=== PATIENT | male | born 1970 | race Caucasian/White ===

== ENCOUNTER 2016-11-13 04:08 | Emergency (ER) | payer MEDICAID ==
[~2016-11-13] VITALS: Ht 185.4 cm; Wt 109.0 kg
[~2016-11-13 04:08] MED LIST: ATEN-100 PO; HYDR-2768 PO; SERT50 PO
[2016-11-13] MEDS ORDERED: GELATIN 12 MM/7 MM FOAM TOPICAL ONE (04:15)
[2016-11-13] MEDS ORDERED: LIDOCAINE 1%/EPINEPHrine 1:100,000 SOLN 20 ML VIAL INFIL ONE (04:15)
[2016-11-13] MEDS ORDERED: HYDR-3583 PO (04:21)
[2016-11-13] MEDS ORDERED: HYDR25TA5 PO (04:21)
[2016-11-13] MEDS ORDERED: ATEN50TA PO (04:21)
[2016-11-13] MEDS ORDERED: FOLI1TAB6 PO (04:21)
[2016-11-13] MEDS ORDERED: ASPI325T PO (04:21)
[2016-11-13] MEDS ORDERED: ZOLO50TA PO (04:21)
[2016-11-13 04:22] VITALS: BP 184/95; PULSE 96; RESP 18; TEMP 98.5; O2SAT 97
[2016-11-13] MEDS ORDERED: LIDOCAINE 2%/EPINEPHrine 1:100,000 30ML MDV INFIL ONE (04:30)
[2016-11-13] MEDS ORDERED: LIDOCAINE 2%/EPINEPHrine 1:100,000 50ML MDV INFIL ONE (04:30)
[2016-11-13 05:01] VITALS: BP 147/91; PULSE 89; RESP 16; O2SAT 96
--- NOTE | 2016-11-13 05:02 | PD ---
HPI Chief Complaint: Bleeding Time Seen by Provider: 04:13 Travel History International Travel<30 days: No Contact w/Intl Traveler<30days: No Traveled to known affect area: No History of Present Illness HPI Is a 46-year-old man who is pretty history of bad venous disease in his lower extremities with previous venous stripping of previous bleeding from varicose veins. It sounds like he may have some kind of inflammatory phlebitis. He follows with a vascular surgeon. He states tonight when he stood up he had bleeding from an area on his leg that he knew was about to rupture and started having bleeding. He describes spurting bleeding. He applied a bandage to the leg and tried to turn to get the leg with a belt. History Past Medical History Narrative Medical Venous disease Social History Alcohol Use: Yes ("MAYBE ONE OR TWO BEERS A MONTH") Tobacco Use: Yes ("2 PACKS PER WEEK") Allergies-Medications (Allergen,Severity, Reaction): Coded Allergies: No Known Allergies (Unverified , 11/13/16) Reported Meds & Prescriptions Reported Meds & Active Scripts Active Reported Folic Acid 1 Mg Tablet 1 Mg PO DAILY Aspirin 325 Mg Tab 325 Mg PO DAILY Hydrocodone-Acetaminophen 10-325 mg Tab 1 Tab PO Q8HR PRN Zoloft (Sertraline HCl) 50 Mg Tab 50 Mg PO DAILY Hydrochlorothiazide 25 Mg Tab 25 Mg PO DAILY Atenolol 50 Mg Tab 50 Mg PO BID Review of Systems Except as stated in HPI: all other systems reviewed are Neg Physical Exam Narrative GENERAL: Well-appearing 46-year-old man, no acute distress. SKIN: Warm and dry. CARDIOVASCULAR: Warm and well perfused. RESPIRATORY: Normal rate and effort. MUSCULOSKELETAL: Patient has a punctate area of bleeding on the anterior leg. He is active almost brisk small amount of bleeding. Several areas of varicose veins. NEUROLOGICAL: Awake and alert. No gross deficits. Data Data Last Documented VS Vital Signs Date Time Temp Pulse Resp B/P Pulse Ox O2 Delivery O2 Flow Rate FiO2 11/13/16 05:01 89 16 147/91 96 Room Air 11/13/16 04:22 98.5 Orders Gelatin 12 Mm/7 Mm Top (Gelfoam 12 Mm/7 (11/13/16 04:15) Lidocai-Epi 2%-1:100,000 Inj (Xylocaine- (11/13/16 04:30) Lidocai-Epi 2%-1:100,000 Inj (Xylocaine- (11/13/16 04:30) MDM Medical Decision Making Medical Screen Exam Complete: Yes Emergency Medical Condition: Yes Differential Diagnosis Phlebitis, varicose veins, bleeding, other Narrative Course Medical decision making Is a 46 year-old woman is bleeding from a area of phlebitic varicose veins. Bleeding is subsided some as he applied pressure and elevated the leg. I injected some lidocaine with epinephrine, we applied a stitch to the area to try to close the wound, and he applied some Gelfoam and pressure. Bleeding is subsided. We'll give him an hour, the lobe stand up. He has a pressure dressing on. We'll have him follow-up with his vascular surgeon in the next day or 2. Diagnosis Primary Impression: Phlebitis Additional Impression: Bleeding Additional Instructions: Keep leg elevated as much as possible for the next 24-48 hours. After 24 hours remove bandage in place with regular Jamil wrap which gentle compression. Follow-up with your vascular surgeon in the next day or 2. Med/Other Pt SpecificInfo: No Change to Meds Disposition: 01 DISCHARGE HOME Condition: Stable Jameel Felipe MD Nov 13, 2016 05:02
[2016-11-13 06:06] VITALS: BP 132/70
== END 2016-11-13 06:09 | disposition home or self-care (01) ==
LOC: PHED 04:08
DX: I83.12 Varicose veins of left lower extremity with inflammation (principal); I83.892 Varicose veins of left lower extremity with other complications; Z79.82 Long term (current) use of aspirin; F17.210 Nicotine dependence, cigarettes, uncomplicated
CPT/HCPCS: 12001